=== PATIENT | male | born 1970 | race American Indian/Alaskan Native ===

== ENCOUNTER 2018-04-12 06:16 | Day surgery (SDC) | payer BC ==
[~2018-04-12 06:16] MED LIST: ANCEF/STERILE WATER 2 GM/20 ML 2 GM/20 ML SYRINGE IV NR; MARCAINE 0.5% INFILTRATI ONE; NACL 0.9% 1000 ML 1,000 ML IV SCH
[2018-04-12] MEDS ORDERED: DILAUDID ONE ×2 (07:08→07:09)
[2018-04-12] MEDS ORDERED: XYLOCAINE MPF 2% ONE (07:08)
[2018-04-12] MEDS ORDERED: DIPRIVAN 10 MG/ML IV ONE (07:09)
[2018-04-12] MEDS ORDERED: PAPAVERINE ONE (07:16)
[2018-04-12] MEDS ORDERED: MARCAINE 0.5% 30 ML INFILTRATI ONE (07:16)
[2018-04-12] MEDS ORDERED: PROTAMINE SULFATE ONE (07:16)
[2018-04-12] MEDS ORDERED: XYLOCAINE 1%/ EPI 1:100,000 INFILTRATI ONE (07:17)
[2018-04-12] MEDS ORDERED: HEPARIN 10,000 UNITS/10 ML ONE (07:17)
[2018-04-12] MEDS ORDERED: NACL 0.9% 500 ML 500 ML ONE (07:17)
--- NOTE | 2018-04-12 07:26 | Anesthesia Consultation ---
Anesthesia Consult and Med Hx Date of service: 04/12/18 - Airway Anesthetic Teeth Evaluation: Good ROM Head & Neck: Adequate Mental/Hyoid Distance: Adequate Mallampati Class: Class II Intubation Access Assessment: Good - Pulmonary Exam CTA: Yes - Cardiac Exam Cardiac Exam: RRR - Pre-Operative Health Status ASA Pre-Surgery Classification: ASA3 Proposed Anesthetic Plan: General - Pulmonary Hx Smoking: No Hx Sleep Apnea: No (VILMA PRE SCREEN HIGH RISK.) - Cardiovascular System Hx Hypertension: Yes (1999) - Endocrine Hx Renal Disease: Yes Hx Non-Insulin Dependent Diabetes: Yes - Hematic Hx Anemia: Yes - Other Systems Hx Cancer: No
--- NOTE | 2018-04-12 07:26 | Anesthesia Day of Surgery ---
Anesthesia Day of Surgery - Day of Surgery Patient Examined: Yes Patient H&P Reviewed: Yes Patient is NPO: Yes
[2018-04-12] MEDS ORDERED: VERSED IV NR (08:00)
[2018-04-12] MEDS ORDERED: PEPCID PO NR (08:00)
[2018-04-12 08:03] LABS: Calcium 8.6 mg/dL (8.4-10.2)
[2018-04-12] MEDS ORDERED: ZOFRAN ONE (08:43)
[2018-04-12 08:51] LABS: Hematocrit 23.2 % (35.5-45.6); Hemoglobin 7.1 gm/dl (11.8-15.2); Mean Corpuscular HGB Conc 30 % (32-34); Mean Corpuscular Hemoglobin 19 pg (28-32); Mean Corpuscular Volume 63 fl (84-94); Platelet Count 174 K/mm3 (140-440); Red Blood Count 3.71 M/mm3 (3.65-5.03); Red Cell Distribution Width 25.9 % (13.2-15.2)
[2018-04-12] MEDS ORDERED: NACL 0.9% 500 ML IV ONE (08:55)
[2018-04-12] MEDS ORDERED: HEPARIN 10,000 UNITS/10 ML IV ONE (08:55)
[2018-04-12] MEDS ORDERED: MARCAINE 0.5% INFILTRATI ONE (10:43)
--- NOTE | 2018-04-12 11:18 | Short Stay Summary ---
Short Stay Documentation Date of service: 04/12/18 Narrative H&P: See H&P - History H&P: obtained from office - Allergies and Medications Current Medications: Allergies No Known Allergies Allergy (Verified 04/04/18 16:14) Home Medications Medication Instructions Recorded Confirmed Last Taken Type Allopurinol [Zyloprim] 200 mg PO QDAY 04/04/18 04/04/18 04/11/18 History Calcium Carb/Vit D3/Minerals 1 each PO DAILY 04/04/18 04/04/18 04/11/18 History [Caltrate Plus] Ferrous Sulfate 324 mg PO DAILY 04/04/18 04/04/18 04/11/18 History Insulin Glargine,Hum.rec.anlog 1 units SQ DAILY 04/04/18 04/04/18 04/11/18 History [Toujeo Solostar] Insulin Lispro [HumaLOG VIAL] 1 unit SUB-Q TID 04/04/18 04/04/18 04/11/18 History Labetalol HCl 600 mg PO TID 04/04/18 04/12/18 04/11/18 21:30 History Mycophenolate [Cellcept] 1,000 mg PO BID 04/04/18 04/04/18 04/11/18 History Rosuvastatin Calcium [Crestor] 10 mg PO DAILY 04/04/18 04/04/18 04/11/18 History Tacrolimus [Prograf] 10 mg PO Q12H 04/04/18 04/04/18 04/11/18 History Valsartan [Diovan] 160 mg PO QDAY 04/04/18 04/12/18 04/12/18 04:30 History amLODIPine [Norvasc] 10 mg PO DAILY 04/04/18 04/04/18 04/11/18 History predniSONE [Deltasone] 10 mg PO QDAY 04/04/18 04/04/18 04/11/18 History Active Medications Famotidine (Pepcid) 20 mg PO PREOP NR Stop: 04/12/18 23:59 Last Admin: 04/12/18 08:00 Dose: 20 mg Cefazolin Sodium (Ancef/Sterile Water 2 Gm/20 Ml) 2 gm in 20 mls @ 80 mls/hr IV PREOP NR; Protocol Stop: 04/12/18 21:00 Sodium Chloride (Nacl 0.9% 1000 Ml) 1,000 mls @ 42 mls/hr IV DIRECT MARCELINO Last Admin: 04/12/18 06:55 Dose: 42 mls/hr Midazolam HCl (Versed) 2 mg IV PREOP NR Stop: 04/12/18 23:59 Last Admin: 04/12/18 08:00 Dose: 2 mg - Brief post op/procedure progress note Date of procedure: 04/12/18 Pre-op diagnosis: Chronic Renal Failure with Failing Renal Transplant Post-op diagnosis: same Procedure: Creation of Right Brachial Basilic Arteriovenous Fistula Anesthesia: GETA Surgeon: JEET SHIPMAN Estimated blood loss: 50-100ml Pathology: none Condition: stable - Disposition Condition at discharge: Good Disposition: DC-01 TO HOME OR SELFCARE Short Stay Discharge Plan Activity: other (no heavy lifting with right arm) Wound: open to air, keep clean and dry, other (okay to wash the wound with soap and water but do not soak in water) Follow up with: JEET SHIPMAN MD [Staff Physician] - 14 Days Prescriptions: HYDROcodone/APAP 7.5-325 [Pollock 7.5/325] 1 each PO Q6HR PRN #40 tablet PRN Reason: Pain
--- NOTE | 2018-04-12 11:23 | Operative Report ---
Operative Report Operative Report: Date of procedure: 04/12/2018 Pre-operative diagnosis: Chronic Renal Failure with Failing Renal Transplant Post-operative diagnosis: Same Procedure(s): Creation of Right Brachial Artery to Basilic Arteriovenous Fistula Surgeon: Rodríguez Ochoa MD Custom Grinder: None Anesthesia: Gen. Endotracheal Anesthesia EBL: 100 mL Counts: Correct Complications: None Condition: Stable Findings: Successful creation of right brachiobasilic arteriovenous fistula with palpable throughout the completion of the case. Specimen: None Indication: The patient is a 47-year-old male with a history of a renal transplant that is still functioning but began to fail. He is not on hemodialysis. However it is anticipated that he will need in the near future. He will require dialysis access prior to initiating dialysis. He has an adequate basilic vein in his right arm and he is left-hand dominant. He was given the risks, benefits, and alternative procedures of creation of a right arm arteriovenous fistula creation and consented to procedure. Description of Procedure: The patient was brought to the operating room and laid in supine position after general endotracheal anesthesia was administered the patient was prepped and draped in normal sterile fashion. After anesthetizing the skin a transverse incision was created just below the antecubital crease. Dissection was carried down to the the basilic vein using sharp dissection. The vein was dissected out both proximally and distally and suture ligated and divided distally. I then ran a 3 Eileen proximally in the vein, to ensure patency of the vein. I then flushed the vein with heparinized saline and controlled flow with a bulldog clamp. I then dissected out the brachial artery through this incision circumferentially both proximal and distal and controlled th artery with vessel loops. I placed the vessel loops on tension, controlling the flow through the artery, and created an arteriotomy using an 11 blade and Javed scissors. I created an end to side anastomosis between the basilic vein and brachial artery using a 6-0 Prolene in running fashion. Prior to completing the anastomosis I flushed the artery both proximally and distally and then advanced a 3 Eileen proximally to break the spasm in the artery. I completed the anastomosis and removed all vessel loops allowing flow into the fistula which had a palpable thrill. This fistula thrombosed and despite multiple attempts to get this fistula to run it continued to fail so made an incision along the medial aspect of the arm just above the antecubital crease and carried this down to the basilic vein as well as the brachial artery through this incision. I mobilized the deep basilic vein and ligated distally. I dissected the basilic artery circumferentially and controlled with vessels. I created an arteriotomy using 11 blade and Javed scissors and then created an end-to-side anastomosis using a 6-0 Prolene in running fashion. Prior to completing the anastomosis I flashed the proximal and distal brachial artery and flushed the arteriotomy with a pronounced saline. I then completed the anastomosis and released the vessel loops allowing flow into the fistula which had a palpable thrill. I achieved hemostasis with a combination of direct pressure and quick clot. Once hemostasis was achieved I anesthetized the wound with 0.5% Marcaine. I closed both wounds in 2 layers using 3-0 Vicryl in a running fashion to close the deep dermal layer and 4-0 Monocryl in a running fashion in the subcuticular layer. I dressed the wounds with Surgicel. The patient tolerated the procedure well, all sponge needle and instrument counts were correct. The patient was taken to recovery in stable condition.
[2018-04-12] MEDS ORDERED: DILAUDID IV PRN (12:07)
[2018-04-12] MEDS ORDERED: ZOFRAN IV PRN (12:07)
[2018-04-12 13:49] VITALS: BP 156/77
[2018-04-12 20:36] LABS: Basophils % (Manual) 0 % (0.0-1.8); Total Cells Counted 100
[2018-04-12 20:37] LABS: Dimorphic RBC Yes; Hypochromasia 2+; Tear Drop Cells 1+
[2018-04-12 20:38] LABS: Ovalocytes 1+; Platelet Estimate Consistent w Auto
== END 2018-04-12 13:33 | disposition home or self-care (01) ==
LOC: OR 06:16
PROVIDERS: ATTEND Surgery Vascular Surgery
DX: I12.0 Hypertensive chronic kidney disease with stage 5 chronic kidney disease or end stage renal disease (principal); E11.22 Type 2 diabetes mellitus with diabetic chronic kidney disease; N18.6 End stage renal disease; E78.00 Pure hypercholesterolemia, unspecified; D64.9 Anemia, unspecified; Z99.2 Dependence on renal dialysis; Z94.0 Kidney transplant status; Z79.899 Other long term (current) drug therapy; Z79.4 Long term (current) use of insulin
CPT/HCPCS: 36415; 36821; 80048; 82962; 85007; 85025; C1757; J0690; J1170; J1644; J1720; J2250; J2405; J2704; J7030; J7040; J2440; J2720